=== PATIENT | female | born 1960 | race Caucasian/White ===

== ENCOUNTER 2021-04-17 10:05 | Day surgery (SDC) | payer BC ==
[~2021-04-17] VITALS: Ht 165.1 cm; Wt 83.8 kg
[~2021-04-17 10:05] MED LIST: AFRIN; ASPI325EC PO; ATOR10; ATOR40TA PO; Advil200 M1 PO; CLON.1 PO; ESTR1; Flonase 0.05% N16 GM; HYDACE5 PO; IBUP200; Lisinopril-Hct1 EAC4; Nortriptyline H50 MG; OXYACE5T PO; PRAV10 PO; Pravastatin Sod80 MG; Prinivil10 MG PO; RXOXYACE PO
--- NOTE | 2021-04-17 12:30 | NUR ---
04/17/[address] IN ROOM AT 1207, TIME OUT TAKEN TO CONFIRM CORRECT SITE AND PT. PT RECIEVED 2MG OF MIDAZOLAM AT 1208. INJECTED 10CC OF LIDOCAINE WITH EPI 1:100,000. PT TOLERATED PROCEEDURE WELL. END 1212.
== END 2021-04-17 13:31 | disposition home or self-care (01) ==
LOC: ORSCSDS 10:05
PROVIDERS: Orthopaedic Surgery
PROC: 01N54ZZ Release Median Nerve, Percutaneous Endoscopic Approach (ICD-10-PCS; principal; 2021-04-17 11:30)
DX: G56.01 Carpal tunnel syndrome, right upper limb (principal); I10 Essential (primary) hypertension; E66.9 Obesity, unspecified; Z68.30 Body mass index [BMI] 30.0-30.9, adult; K21.9 Gastro-esophageal reflux disease without esophagitis; Z79.899 Other long term (current) drug therapy
CPT/HCPCS: J2250

== ENCOUNTER 2021-05-20 09:18 | Day surgery (SDC) | payer BC ==
[~2021-05-20] VITALS: Ht 165.1 cm; Wt 82.4 kg
--- NOTE | 2021-05-20 10:04 | NUR ---
05/20/21 1004 Erma Diamond FIRST ATTEMPT MISSED BY IRAIS IN THE RIGHT HAND. SECOND ATTEMPT SUCCESFUL BY RN IN THE RIGHT HAND.
== END 2021-05-20 12:01 | disposition home or self-care (01) ==
LOC: ORSCSDS 09:18
DX: Z12.11 Encounter for screening for malignant neoplasm of colon (principal); Z86.010 Personal history of colon polyps; D12.0 Benign neoplasm of cecum; D12.4 Benign neoplasm of descending colon; I10 Essential (primary) hypertension; K21.9 Gastro-esophageal reflux disease without esophagitis; E78.5 Hyperlipidemia, unspecified; Z79.899 Other long term (current) drug therapy
CPT/HCPCS: 88305; J2704; J7120

== ENCOUNTER → 2021-12-02 | Outpatient (CLI) | payer SELFPAY | END | disposition home or self-care (01) | LOC: LAB SHORT 11:20 → LAB 11:20 | DX: R82.90 Unspecified abnormal findings in urine (principal) | CPT/HCPCS: 87077; 87086; 87186 ==